=== PATIENT | male | born 1970 | race Caucasian/White ===

== ENCOUNTER 2018-12-28 09:15 | Emergency (ER) | payer SELFPAY, OTHER | END 2018-12-28 09:59 | disposition home or self-care (01) | LOC: ER FS 09:15 ==

== ENCOUNTER 2019-01-06 05:17 | Emergency (ER) | payer SELFPAY ==
[~2019-01-06] VITALS: Ht 177.8 cm; Wt 92.5 kg
[~2019-01-06 05:17] MED LIST: NAPR-1071 PO; POLY17PO6 PO; PRD20T PO
[2019-01-06] MEDS ORDERED: KETOROLAC 60 MG/2 ML VIAL ONE (05:35)
[2019-01-06] MEDS ORDERED: DEXAMETHASONE 4 MG/ML SDV (DECADRON) IM ONE (05:45)
[2019-01-06] MEDS ORDERED: oxyCODONE/APAP 5/325MG (PERCOCET 5) TABLET PO ONE (05:45)
[2019-01-06] MEDS ORDERED: DIAZEPAM 5 MG (VALIUM) TABLET PO ONE (05:45)
[2019-01-06] MEDS ORDERED: KETOROLAC 15 MG/ML VIAL IM ONE (05:45)
--- NOTE | 2019-01-06 05:45 | ED General ---
General Chief Complaint: Lower Extremity Stated Complaint: RIGHT LEG PAIN/NUMBNESS Nursing Triage Note: PT COMPLAINING OF RIGHT HIP PAIN RADIATING DOWN TO HIS FOOT. PT SEEN FOR THIS LAST WEEK AND GIVEN STEROIDS. Nursing Sepsis Screen: No Definite Risk History of Present Illness Date Seen by Provider: Jan 06, 2019 Time Seen by Provider: 05:40 Initial Comments Patient presents emergency department for evaluation of right-sided back pain that radiates down to his R hip and down his right posterior leg has been an off and on issue for years. He said he had received MRIs before in the past. He denies any new injury or overuse that he can think of however yesterday was his first day back at work which may have set off his pain again. He was seen approximately one week ago on December 28 for back pain that was similar and radiated down his leg and caused him to have numbness and tingling in his right leg. He says he has no new symptoms rather that his pain is not getting any better and that seems to keep coming back. He denies any weakness bowel or bladder incontinence or saddle anesthesia. He says it hurts to walk but he is able to. Last time he received a steroid injection and took NSAIDs and seemed to get better with pain and symptoms returned yesterday. Patient says he has no primary care provider and has not had a recent MRI. He is in nad with normal Vs. Allergies and Home Medications Allergies Coded Allergies: No Known Drug Allergies (Unverified , 12/28/18) Home Medications Naproxen 500 Mg Tablet, 500 MG PO BID Prescribed by: SUSHMA SINGH on 12/28/18 0937 Polyethylene Glycol 3350 17 Gm Powd.pack, 17 GM PO BID PRN PRN for CONSTIPATION- 1ST LINE Prescribed by: SUSHMA SINGH on 12/28/18 0937 Prednisone 20 Mg Tab, 20 MG PO BID Prescribed by: SUSHMA SINGH on 12/28/18 0937 Patient Home Medication List Home Medication List Reviewed: Yes Review of Systems Review of Systems Constitutional: no symptoms reported EENTM: no symptoms reported Respiratory: no symptoms reported Cardiovascular: no symptoms reported Gastrointestinal: no symptoms reported Genitourinary: no symptoms reported Musculoskeletal: back pain; No muscle weakness Psychiatric/Neurological: Numbness, Paresthesia, Tingling; Denies Weakness All Other Systems Reviewed Negative Unless Noted: Yes Past Wlpbdii-Mdnbul-Jkmfhy Hx Patient Social History Alcohol Use: Denies Use Recreational Drug Use: No 2nd Hand Smoke Exposure: No Recent Foreign Travel: No Contact w/Someone Who Travel: No Recent Infectious Disease Expo: No Recent Hopitalizations: No Seasonal Allergies Seasonal Allergies: No Past Medical History Surgeries: Yes Appendectomy Respiratory: No Cardiac: Yes Hypertension Neurological: No Genitourinary: No Gastrointestinal: No Musculoskeletal: Yes (bulging discs; sciatica; comp fx L1) Back Injury, Chronic Back Pain Endocrine: No HEENT: No Cancer: No Psychosocial: Yes Anxiety Integumentary: No Blood Disorders: No Adverse Reaction/Blood Tranf: No Physical Exam Vital Signs Vital Signs - First Documented 01/06/19 05:25 Temp 98.2 Pulse 116 Resp 18 B/P (MAP) 149/104 (119) Pulse Ox 97 O2 Delivery Room Air Capillary Refill : Less Than 3 Seconds Height, Weight, BMI Height: 5'10.00" Weight: 204lbs. oz. 92.665005zn; BMI Method:Stated General Appearance: No Apparent Distress, WD/WN HEENT: PERRL/EOMI Neck: Full Range of Motion, Non Tender Respiratory: Normal Breath Sounds, No Respiratory Distress Cardiovascular: Regular Rate, Rhythm Gastrointestinal: Non Tender, Soft Rectal: Deferred (at patient's request) Back: Other (lumbar paraspina ttp. No midlline ttp.) Extremity: Normal Capillary Refill Neurologic/Psychiatric: Alert, Oriented x3, Sensory Deficit (sensation present but feels decreased sensation along medial calf on R. No sensation deficit in saddle region.), Other (5/5 strength in BL knee, ankle big toe flexion and extension) Skin: Normal Color, Warm/Dry Progress/Results/Core Measures Suspected Sepsis Recent Fever Within 48 Hours: No Infection Criteria Present: None New/Unexplained Altered Menta: No Sepsis Screen: No Definite Risk SIRS Temperature:98.2 Pulse: 116 Respiratory Rate: 18 Blood Pressure 149 /104 Mean: 119 Results/Orders My Orders Orders - KIKI DOMINGUEZ DO Ketorolac Injection (Toradol Injection) (01/06/19 05:45) Dexamethasone Injection (Decadron Inject (01/06/19 05:45) Oxycodone/Apap 5/325mg Tablet (Percocet (01/06/19 05:45) Diazepam Tablet (Valium Tablet) (01/06/19 05:45) Vital Signs/I&O 01/06/19 05:25 Temp 98.2 Pulse 116 Resp 18 B/P (MAP) 149/104 (119) Pulse Ox 97 O2 Delivery Room Air Capillary Refill : Less Than 3 Seconds Blood Pressure Mean: 119 Progress Note : Progress Note Patient with sciatica symptoms on the right side with the numbness and paresthesias that was documented last visit as well. There is no new symptoms of weakness or anesthesia or incontinence. His neurologic exam is benign with 5 out of 5 strength is equal in his bilateral lower extremities. It does hurt to move his right lower extremity. I have CT and x-ray imaging available to me which would not be helpful. I told patient and is very important that he gets primary care provider and get an MRI and further specialty follow-up S emergency room to help treat his symptoms however we offer no definitive management or dariusz atment for his condition. I told him he would need to come back to the emergency department if he ever happened weakness saddle anesthesia bowel or bladder incontinence as that may be a neurosurgical emergency that would require emergent transfer to a facility with an MRI and a neurosurgeon. Patient will be discharged with [place] and told to use lidocaine patches and NSAIDs. Patient aware and agreeable with plan for discharge and verbalized understanding of the need for short-term follow-up and strict ED return precautions discussed such as emergencies of weakness incontinence or saddle anesthesia. Departure Impression Primary Impression: Lumbar radiculopathy, chronic Additional Impression: Lumbar back pain Disposition: 01 HOME, SELF-CARE Condition: Stable Departure-Patient Inst. Referrals: NO,LOCAL PHYSICIAN (PCP/Family) Primary Care Physician Patient Instructions: Radiculopathy (DC) Add. Discharge Instructions: All discharge instructions reviewed with patient and/or family. Voiced understanding. Take 800mg of ibuprofen every 6 hours and the norco for breakthrough pain. Take OTC miralax, magnesium and Dulcolax as needed for constipation as the pain medicine can constipate you. You need a primary care provider. Come back with weakness, incontinence, or other concerns as these would be reasons to transfer you to another hospital. Scripts Lidocaine (Aspercreme) 1 Each Adh..patch 1 EACH TP TID, #10 PATCH Prov: KIKI DOMINGUEZ DO 01/06/19 Hydrocodone/Acetaminophen ([place] 5-325 Tablet) 1 Each Tablet 1 TAB PO Q4-6HR for Pain MDD 10 TABS for 7 Days, #10 TAB Prov: KIKI DOMINGUEZ DO 01/06/19 Ibuprofen (Ibuprofen) 800 Mg Tablet 800 MG PO Q8H PRN for PAIN, #30 TAB 0 Refills Prov: KIKI DOMINGUEZ DO 01/06/19 Work/School Note: Work Release Form Date Seen in the Emergency Department: Jan 06, 2019 Return to Work: Jan 08, 2019 Restrictions: Follow Up With [facility] Restrictions: No lifting over 10 pounds or bending over KIKI DOMINGUEZ DO Jan 06, 2019 05:45
[2019-01-06] MEDS ORDERED: LIDO1ADH44 TP (05:52)
[2019-01-06] MEDS ORDERED: HYDR-4226 PO (05:52)
[2019-01-06] MEDS ORDERED: IBUP-1780 PO (05:52)
[2019-01-06 06:15] VITALS: BP 147/107
--- OUTSIDE RECORDS SUMMARY | 2019-01-06 07:42 | XMS REPORT | Continuity of Care Document ---
Author Organization Unknown Address Unknown Allergies There is no data. Medications There is no data. Problems There is no data. Procedures There is no data. Results There is no data. Encounters ACCT No. Visit Date/Time Discharge Status Pt. Type Provider Facility Loc./Unit Complaint [id number] 12/26/2018 17:40:00 12/26/2018 23:59:59 CLS Outpatient ALEXI CHASE [facility]
== END 2019-01-06 06:15 | disposition home or self-care (01) ==
LOC: EDUNIT# 05:17 → ER FS 05:20
DX: M54.16 Radiculopathy, lumbar region (principal); I10 Essential (primary) hypertension; F41.9 Anxiety disorder, unspecified; Z90.49 Acquired absence of other specified parts of digestive tract; Z87.81 Personal history of (healed) traumatic fracture
CPT/HCPCS: 99284